=== PATIENT | female | born 1950 | race Caucasian/White ===

== ENCOUNTER 2016-11-14 21:48 | Inpatient (IN) | payer OTHER ==
[~2016-11-14] VITALS: Ht 160 cm; Wt 54.4 kg
--- NOTE | ~2016-11-14 | O ---
[facility] [place] [address] OPERATIVE REPORT Name: THEODORA ADAIR Room #: 538-P ADM IN M.R.#: [id number] Admission: 11/14/16 Attend Phys: Charles Bailey MD Discharge: Date of : 50 Report #: [id number] THIS REPORT FOR: //name// CC: Rudolph Yesenia Bailey DATE OF SERVICE: 11/15/2016 PREOPERATIVE DIAGNOSIS: Right hip intertrochanteric hip fracture. POSTOPERATIVE DIAGNOSIS: Right hip intertrochanteric hip fracture. PROCEDURE: Right hip trochanteric femoral nail. SURGEON: Vidal Dunlap MD. ANESTHESIA: General. ESTIMATED BLOOD LOSS: 50 mL. DRAINS: None. TOURNIQUETS: None. COMPLICATIONS: None. DESCRIPTION OF PROCEDURE: The patient was brought to the operating room, where she was placed under general anesthesia. Once under adequate general anesthesia, she was placed onto the fracture table. Once on the fracture table, a reduction maneuver was performed, excellent reduction was achieved, as verified under fluoroscopy. The right hip was then prepped and draped in the sterile manner. Utilizing fluoroscopy for guidance, a 2 cm incision was made proximal to the tip of the greater trochanter. The trochanteric awl was then utilized to enter the femoral canal, the guidewire was then placed down the shaft of the femur and subsequently a 10 mm trochanteric femoral nail from [employer] was then placed. The guidewire for the compression screw was then placed through a separate 1.5 cm incision laterally through the jig, under fluoroscopic guidance. A 100 mm compression screw was then placed after drilling and reaming for this. The proximal locking bolt was engaged and distally a single transverse screw, traversing the trochanteric femoral nail was then placed, 34 mm in length. Excellent fixation and alignment was achieved in this manner, and is verified under fluoroscopy. The wounds were irrigated copiously and closed with 2-0 Vicryl in subcutaneous tissues and ermias were used for the skin. The wounds were dressed with Xeroform, 4 x 4s, and sterile soft compressive dressing was placed. There were no complications from the [address] [address] OPERATIVE REPORT Name: THEODORA ADAIR Room #: 538-P [facility] IN M.R.#: [id number] Admission: 11/14/16 Attend Phys: Charles Bailey MD Discharge: Date of : 50 Report #: [id number] procedure. The patient tolerated the procedure well and went to the recovery room without incident. <ELECTRONICALLY SIGNED> By: Vidal Dunlap MD 11/16/16 0813 1500 180 Vidal Dunlap MD /nt
--- NOTE | ~2016-11-14 | HC ---
[facility] [place] [address] CONSULTATION Name: THEODORA ADAIR Room #: 538-P [facility] IN M.R.#: [id number] Admission: 11/14/16 Attend Phys: Charles Bailey MD Discharge: 11/18/16 Date of : 50 Report #: [id number] THIS REPORT FOR: //name// CC: Rudolph Yesenia Bailey HISTORY OF PRESENT ILLNESS: The patient is a 66-year-old white female who tripped and fell on her right hip and was unable to stand. She was admitted to [facility] and noted to have a comminuted intertrochanteric hip fracture. She underwent right hip trochanteric fixation nailing on 11/15/2016. She had some hyponatremia and hypokalemia that has resolved. She had some initial rhabdomyolysis with a subsequent decrease in her CPK and her IV fluids had been stopped. She has been monitored regarding some hypertension. We are seeing her in rehabilitation medicine consultation. PAST MEDICAL HISTORY: Includes hyperlipidemia and wisdom teeth. HABITS: Tobacco abuse, 10 cigarette per day, has smoked that away for about 25 years. Alcohol every other day. REVIEW OF SYSTEMS: Did not offer any current complaints of chest pain, shortness of breath or abdominal discomfort. She notes that her right hip pain is gradually improving. SOCIAL HISTORY: Lives alone, condominium, no steps with elevator or ramp. She did not utilize gait aids premorbidly. There is a nephew that is involved and could assist her. ALLERGIES: No known drug allergies. PHYSICAL EXAMINATION: GENERAL: Pleasant 66-year-old white female, in no obvious distress. She is alert and pleasant. VITAL SIGNS: Temperature is 98.3, pulse 94, respirations 18, and blood pressure is 134/74. HEENT: Appeared to be benign. Cranial nerves are grossly intact. Facies are symmetric. EXTREMITIES: She has functional range of motion of both upper extremities without obvious focal weakness. DTRs are 1. In her lower extremities, there is no focal calf swelling. Right hip is dressed. She can dorsiflex that right ankle. Some discomfort with testing as expected. Functional range of motion with good strength of left lower extremity. She has sit to stand with min assist and ambulating up to 150 feet contact guard with a front-wheeled walker. ASSESSMENT: A 66-year-old white female with the following problem list: 1. Comminuted intertrochanteric hip fracture, status post right hip [address] [address] CONSULTATION Name: THEODORA ADAIR Room #: 538-P [facility] IN [facility]#: [id number] Admission: 11/14/16 Attend Phys: Charles Bailey MD Discharge: 11/18/16 Date of : 50 Report #: [id number] trochanteric fixation nailing 11/15/2016, allowed weightbearing as tolerated. 2. Hyponatremia and hypokalemia that have resolved. 3. Rhabdomyolysis with decrease in CPK, which has improved. 4. Hypertension. 5. Tobacco abuse. PLAN: The patient does progressing in her therapy program. Case management is involved and looking into therapy options for her post-discharge. Thank you for asking us to assist in this patient's care. <ELECTRONICALLY SIGNED> By: Alex Tijerina MD 12/05/16 1617 1033 1237 Alex Tijerina MD /nt
--- NOTE | ~2016-11-14 | HC ---
[facility] [place] [address] CONSULTATION Name: THEODORA ADAIR Room #: 538-P [facility] IN M.R.#: [id number] Admission: 11/14/16 Attend Phys: Charles Bailey MD Discharge: 11/18/16 Date of : 50 Report #: [id number] THIS REPORT FOR: //name// CC: Rudolph Yesenia Bailey CHIEF COMPLAINT: Right hip pain. HISTORY OF PRESENT ILLNESS: The patient is a pleasant 66-year-old female who was brought into the Emergency Department at [facility] yesterday with complaints of right hip pain status post fall. The patient reports that she was walking in her house on Sunday evening and thinks that her shoelace became untied and that she tripped over this. As she tripped, she fell and landed on her right hip and was unable to get up. She was finally able to reach her phone yesterday and contact EMS who brought her from her home to [facility]. The patient reports that she normally lives alone and denies any prior falls or hip pain. PAST MEDICAL HISTORY: Noncontributory. PAST SURGICAL HISTORY: None. ALLERGIES: No known drug allergies. MEDICATIONS: Home meds include atorvastatin 10 mg tabs daily. PHYSICAL EXAMINATION: VITAL SIGNS: Temperature 37.3, blood pressure 145/84, pulse 82, height 160 cm, weight is 54 kg. EXTREMITIES: Right lower extremity is neurovascularly intact, calf is soft and nontender, small abrasion to the anterior medial aspect of the right knee. No tenderness to palpation of the right knee, pain in right hip with attempted range of motion of the hip. Tenderness to palpation of the anterior head. No tenderness to palpation or bruising noted on the lateral aspect of the hip and greater trochanter area. LABORATORY DATA: White blood cell count is 14.2. Hemoglobin 11.1. UA taken yesterday shows 1+ protein, 2+ ketones, 4.0 urobilinogen, and 0-3 hyaline casts seen. Sodium is elevated at 146, potassium 3.3, chloride 111, creatinine is 0.5, BUN 22. AST 112, alkaline phosphatase 127, creatinine kinase 3398. Blood and urine cultures are pending, but show no growth to date. Two views of the right hip show a d comminuted intertrochanteric hip fracture with some overriding of the fracture fragments and mild varus angulation of the distal fracture fragment involving the right hip. [facility] [address] [place] [address] CONSULTATION Name: THEODORA ADAIR Room #: 538-P [facility] IN [facility]#: [id number] Admission: 11/14/16 Attend Phys: Charles Bailey MD Discharge: 11/18/16 Date of : 50 Report #: [id number] IMPRESSION: 1. Right intertrochanteric femur fracture. 2. Renal insufficiency and rhabdomyolysis. PLAN: Discussed the patient's hip fracture diagnosis and treatment options today including operative intervention, which would include a right trochanteric femoral nailing. We discussed the surgery as well as the need for postoperative therapy and rehabilitation course. The patient reports that she does have a family member who is willing to come and stay with her once she does return home, to help care for her. We discussed that she would need to return to our office for followup visits and x-rays to assess healing. The patient has elected to proceed with scheduling surgery. Pending medical clearance as well as anesthesia clearance, we will plan on proceeding with surgery sometime today or this afternoon. <ELECTRONICALLY SIGNED> By: KATHIA Menard 11/23/16 1350 0926 1020 KATHIA Menard /nt
[2016-11-14 21:49] VITALS: BP 150/91
[2016-11-14] MEDS ORDERED: LIPITOR10 MG PO (21:52)
[2016-11-14 22:24] LABS: ABSOLUTE NEUTROPHILS 11.9 thou/uL (1.4-8.2); BASOPHILS 0.2 % (0.0-2.0); HEMATOCRIT 41.5 % (37.0-47.0); MCH 32.5 pg (26.0-34.0); MCHC 33.8 % (28.0-37.0); MCV 96.1 fL (80.0-100.0); MONOCYTES 10.9 % (1.0-8.0); PLATELET COUNT 313 thou/uL (150-400); POLYS 70.9 % (36.0-66.0); RBC 4.32 mil/uL (4.20-5.00); RDW 13.4 % (10.5-14.5); URINE BLOOD NEGATIVE (Negative); URINE GLUCOSE-RANDOM* NEGATIVE (Negative); URINE KETONES 2+ (Negative); URINE NITRITE NEGATIVE (Negative); URINE PROTEIN (DIPSTICK) 1+ (Negative); URINE SPECIFIC GRAVITY >= 1.030 (1.003-1.035); WBC 16.8 thou/uL (4.0-11.0)
[2016-11-14 22:29] LABS: ICTOTEST (BILI CONFIRMATORY) Negative (Negative); URINE BILIRUBIN NEGATIVE (Negative); URINE COLOR DARK YELLOW
[2016-11-14 22:31] LABS: MANUAL DIFF NO
[2016-11-14 22:33] LABS: CALCIUM 9.8 mg/dL (8.5-10.1); CREATININE 0.7 mg/dL (0.6-1.3); POTASSIUM 3.7 mmol/L (3.5-5.1)
[2016-11-14 22:38] LABS: HYALINE CASTS 0-3 Few /LPF (None Seen); SQUAMOUS 4-10 Moderate /LPF (0-3)
[2016-11-14 22:39] LABS: BACTERIA >30 Many /HPF (None Seen); CRYSTALS None Seen /LPF (None Seen); URINE RBC 0-2 Rare /HPF (0-2); URINE WBC 0-5 Rare /HPF (0-5)
[2016-11-14 22:40] LABS: TOTAL BILIRUBIN 0.9 mg/dL (<0.1-1.0)
[2016-11-14 22:41] LABS: ALBUMIN 3.9 g/dL (3.4-5.0); DIRECT BILIRUBIN 0.3 mg/dL (<0.1-0.3); TOTAL PROTEIN 7.9 g/dL (6.4-8.2)
[2016-11-14 23:07] VITALS: BP 133/83; BP 182/73
[2016-11-14 23:07] LABS: APTT 27.7 Seconds (24.5-32.8); PROTIME 10.6 Seconds (9.3-11.4)
[2016-11-14 23:30] VITALS: BP 176/82
[2016-11-15] VITALS (9 sets, daily range): BP systolic 129–173; BP diastolic 61–84
[2016-11-15 04:05] LABS: HEMATOCRIT 33.1 % (37.0-47.0); MCH 32.7 pg (26.0-34.0); MCHC 33.4 % (28.0-37.0); MCV 97.9 fL (80.0-100.0); RBC 3.38 mil/uL (4.20-5.00); RDW 13.1 % (10.5-14.5); WBC 14.2 thou/uL (4.0-11.0)
[2016-11-15 04:14] LABS: CREATININE 0.5 mg/dL (0.6-1.3); POTASSIUM 3.3 mmol/L (3.5-5.1)
[2016-11-15 04:15] LABS: CALCIUM 7.3 mg/dL (8.5-10.1)
[2016-11-15 04:16] LABS: HEMOGLOBIN 11.1 gm/dL (12.0-15.0)
[2016-11-16 04:17] VITALS: BP 132/62
[2016-11-16 04:29] LABS: ALBUMIN 2.3 g/dL (3.4-5.0); CALCIUM 7.7 mg/dL (8.5-10.1); CREATININE 0.5 mg/dL (0.6-1.3); MAGNESIUM 1.7 mg/dL (1.8-2.4); POTASSIUM 3.4 mmol/L (3.5-5.1); TOTAL BILIRUBIN 0.8 mg/dL (<0.1-1.0); TOTAL PROTEIN 5.1 g/dL (6.4-8.2)
[2016-11-16 08:16] VITALS: BP 146/65
[2016-11-16 12:48] LABS: BASOPHILS 0.3 % (0.0-2.0); EOSINOPHILS 0.1 % (0.0-3.0); HEMATOCRIT 30.1 % (37.0-47.0); HEMOGLOBIN 10.2 gm/dL (12.0-15.0); LYMPHOCYTES 15.2 % (24.0-44.0); MCHC 33.9 % (28.0-37.0); MCV 97.3 fL (80.0-100.0); MONOCYTES 9.6 % (1.0-8.0); PLATELET COUNT 251 thou/uL (150-400); POLYS 74.8 % (36.0-66.0); RBC 3.09 mil/uL (4.20-5.00); RDW 13.3 % (10.5-14.5); WBC 14.7 thou/uL (4.0-11.0)
[2016-11-16 12:51] LABS: MANUAL DIFF NO
[2016-11-16 13:00] LABS: CREATININE 0.6 mg/dL (0.6-1.3); MAGNESIUM 1.8 mg/dL (1.8-2.4); POTASSIUM 3.5 mmol/L (3.5-5.1)
[2016-11-16 15:40] VITALS: BP 93/52
[2016-11-16 20:08] VITALS: BP 123/65
[2016-11-17 04:23] VITALS: BP 134/74
[2016-11-17 05:48] LABS: HEMATOCRIT 28.6 % (37.0-47.0); HEMOGLOBIN 9.6 gm/dL (12.0-15.0); MCH 33.2 pg (26.0-34.0); MCHC 33.6 % (28.0-37.0); MCV 98.9 fL (80.0-100.0); RBC 2.89 mil/uL (4.20-5.00); RDW 12.7 % (10.5-14.5); WBC 12.4 thou/uL (4.0-11.0)
[2016-11-17 05:59] LABS: CALCIUM 8.2 mg/dL (8.5-10.1); CREATININE 0.5 mg/dL (0.6-1.3); POTASSIUM 3.4 mmol/L (3.5-5.1)
[2016-11-17] MEDS ORDERED: OXYCODONE HCL 55 MG PO (09:34)
[2016-11-17] MEDS ORDERED: XARELTO10 MG PO (09:34)
[2016-11-17 20:49] VITALS: BP 111/69
[2016-11-18 01:30] VITALS: BP 117/63
[2016-11-18 04:31] VITALS: BP 131/70
[2016-11-18 08:48] VITALS: BP 134/73
[2016-11-18] MEDS ORDERED: MIRALAX17 GM PO (13:29)
[2016-11-18] MEDS ORDERED: SENOKOT-S1 TA1 PO (13:29)
== END 2016-11-18 14:43 | DRG 481 ==
LOC: ER 21:48 → EROBS 22:47 → 5S 22:47
PROVIDERS: Emergency Medicine; Family Medicine; Orthopaedic Surgery Foot and Ankle Surgery
PROC: 0QS606Z Reposition Right Upper Femur with Intramedullary Internal Fixation Device, Open Approach (ICD-10-PCS; principal; 2016-11-15)
DX: S72.141A Displaced intertrochanteric fracture of right femur, initial encounter for closed fracture (principal); M62.82 Rhabdomyolysis; N39.0 Urinary tract infection, site not specified; E87.1 Hypo-osmolality and hyponatremia; E44.1 Mild protein-calorie malnutrition; E78.5 Hyperlipidemia, unspecified; F17.210 Nicotine dependence, cigarettes, uncomplicated; Z60.2 Problems related to living alone; F17.200 Nicotine dependence, unspecified, uncomplicated; E87.6 Hypokalemia; D72.829 Elevated white blood cell count, unspecified; W19.XXXA Unspecified fall, initial encounter; Y93.89 Activity, other specified; Y92.89 Other specified places as the place of occurrence of the external cause; Y99.8 Other external cause status; Z88.8 Allergy status to other drugs, medicaments and biological substances; Z28.21 Immunization not carried out because of patient refusal
CPT/HCPCS: 10086; 50010; 50101; 50386; 50635; 51538; 51817; 52146; 55445; 56524; 57092; 62110; 62900; 70005